=== PATIENT | male | born 2005 | race Two or more races ===

== ENCOUNTER → 2023-06-17 | Emergency (ER) | payer OTHER ==
[~2023-06-17] VITALS: Ht 180.3 cm; Wt 57.6 kg
[~2023-06-17] MED LIST: ADVIL DUAL ACT1 EACH PO; NASAL MIST126 ML
== END | disposition home or self-care (01) ==
LOC: EMR PED 07:48 → ER 07:48 → EMR PED 09:21
DX: S00.83XA Contusion of other part of head, initial encounter (principal); Y08.89XA Assault by other specified means, initial encounter; Y93.71 Activity, boxing; Y92.89 Other specified places as the place of occurrence of the external cause; Y99.8 Other external cause status; Z88.0 Allergy status to penicillin